=== PATIENT | female | born 1955 | race Caucasian/White ===

== ENCOUNTER → 2017-07-19 | Outpatient (REF) ==
[2015-05-22 10:55] VITALS: BMI 36.2
[~2017-07-19] MED LIST: ALB18R INH; AUG500 PO; FLUT1DIS28 IH; FLUT1DIS29 IH; HYDR25CA13 PO; IBUP-56 PO; LEVO750T27 PO; LISI-362 PO; LOR5 PO; LORA-629 PO; NAPR500T31 PO; NO; OMEP-137 PO; PRED-1 PO; SUMA100T32 PO
--- NOTE | 2017-07-19 14:48 | RADIOLOGY IMAGING REPORT ---
FACILITY: [facility] PATIENT NAME: Naila Jacobsen : 1955 MR: [id number] V: [id number] EXAM DATE: ORDERING PHYSICIAN: RANJIT JAVIER TECHNOLOGIST: Location: [facility] Patient: Naila Jacobsen : 1955 Visit/Account:[id number] Date of Sevice: 07/19/2017 EXAMINATION: Ultrasound soft tissue HISTORY: Popliteal swelling right knee. COMPARISON: None. FINDINGS: There is no focal abnormality in the right popliteal area at the site indicated by the pat ient. Popliteal vein and artery are patent on color Doppler ultrasound and the vein is normally comp ressible. No focal soft tissue mass. IMPRESSION: No sonographic abnormality in the right popliteal area at the site indicated by the patient. Report Dictated By: Claribel Whiteside MD at 07/19/2017 2:30 PM Report E-Signed By: Claribel Whiteside MD at 07/19/2017 2:45 PM WSN:[email or web address]
== END ==
LOC: US 06:52
PROVIDERS: ATTEND Nurse Practitioner
DX: M25.461 Effusion, right knee (principal)
CPT/HCPCS: 76999

== ENCOUNTER → 2017-08-02 | Outpatient (REF) ==
[2015-05-22 10:55] VITALS: BMI 36.2
--- NOTE | 2017-08-02 15:32 | RADIOLOGY IMAGING REPORT ---
FACILITY: [facility] PATIENT NAME: Naila Jacobsen : 1955 MR: [id number] V: [id number] EXAM DATE: ORDERING PHYSICIAN: RANJIT JAVIER TECHNOLOGIST: Location: [facility] Patient: Naila Jacobsen : 1955 Visit/Account:[id number] Date of Sevice: 08/02/2017 EXAMINATION: Chest radiographs 2 views HISTORY: Spirometry shows restriction, COPD. COMPARISON: 05/22/2015. FINDINGS: PA and lateral views of the chest are submitted. Lines/tubes: None. Lungs/pleura: No focal consolidation or pleural effusion. Lung volumes appear normal. Heart: Negative. Mediastinum: Negative. Bony structures/body wall: Negative. IMPRESSION: No radiographic evidence of acute cardiopulmonary disease. Report Dictated By: Claribel Whiteside MD at 08/02/2017 3:27 PM Report E-Signed By: Claribel Whiteside MD at 08/02/2017 3:29 PM WSN:[email or web address]
== END ==
LOC: RAD 14:50
PROVIDERS: ATTEND Nurse Practitioner
DX: J44.9 Chronic obstructive pulmonary disease, unspecified (principal)
CPT/HCPCS: 71046

== ENCOUNTER → 2017-08-09 | Outpatient (REF) ==
[2015-05-22 10:55] VITALS: BMI 36.2
== END ==
LOC: US 00:55
PROVIDERS: ATTEND Nurse Practitioner
DX: I51.7 Cardiomegaly (principal); I34.0 Nonrheumatic mitral (valve) insufficiency; I07.1 Rheumatic tricuspid insufficiency
CPT/HCPCS: 93306

== ENCOUNTER → 2017-09-09 | Outpatient (REF) ==
[2015-05-22 10:55] VITALS: BMI 36.2
--- NOTE | 2017-09-09 15:13 | RADIOLOGY IMAGING REPORT ---
FAC[place] [facility] [place]IENT NAME: Naila Jacobsen : 1955 MR: [id number] V: [id number] EXAM DATE: ORDERING PHYSICIAN: ABRAN JURADO TECHNOLOGIST: Location: [facility] Patient: Naila Jacobsen : 1955 Visit/Account:[id number] Date of Sevice: 09/09/2017 SHOULDER MIN 2 VIEWS RIGHT Indication: Right shoulder pain Comparison: None Findings: The right clavicle, scapula, and proximal humerus are intact and demonstrate normal alignme nt. Visualized right ribs are normal. IMPRESSION: Normal right shoulder radiograph. Report Dictated By: Brian Gordillo at 09/09/2017 3:08 PM Report E-Signed By: Brian Gordillo at 09/09/2017 3:08 PM WSN:[email or web address]
== END ==
LOC: RAD 13:24
PROVIDERS: ATTEND Orthopaedic Surgery Orthopaedic Surgery of the Spine
DX: M25.511 Pain in right shoulder (principal)

== ENCOUNTER → 2017-10-04 | Outpatient (REF) ==
[2015-05-22 10:55] VITALS: BMI 36.2
--- NOTE | 2017-10-04 16:24 | RADIOLOGY IMAGING REPORT ---
FACILITY: [facility] [place] PATIENT NAME: Naila Jacobsen : 1955 MR: [id number] V: [id number] EXAM DATE: ORDERING PHYSICIAN: RANJIT JAVIER TECHNOLOGIST: Location: [facility] [place] Patient: Naila Jacobsen : 1955 Visit/Account:[id number] Date of Sevice: 10/04/2017 CHEST W/O CONTRAST History: Restrictive pattern on spirometry, COPD TECHNIQUE: Contiguous axial images were performed through the chest to the level of the adrenal gla nds. No IV contrast was administered. Coronal and sagittal reformatting was also performed. Dose Lowe ring Technique One of the following dose optimization techniques was utilized in the performance of this exam: Autom ated exposure control; adjustment of the mA and/or kV according to the patient's size; or use of an i terative reconstruction technique. Specific details can be referenced in the facility's radiology C T exam operational policy. COMPARISON STUDIES: Two-view chest August 02, 2017. Lungs / Pleura: There is a 4 mm calcified nodule medial left upper lobe best seen on image 79 of se leonora 4. there is a small amount of linear scarring versus atelectasis in the inferior right middle lobe and lingula. There is a subtle groundglass opacity in the posterior sulcus of the right lower lobe. The re is no evidence of emphysema, bronchiectasis, or pleural effusions. Mediastinum/nodes: Small calcified left hilar lymph nodes. No pathologically enlarged hilar mediast inal lymph nodes are present Heart and vessels: There are moderate coronary artery calcifications Musculoskeletal / Body wall: Moderate spondylotic changes in the thoracic spine Upper abdomen: Visualized abdominal viscera negative. IMPRESSION: Evidence of a prior granulomatous process Small amount linear scarring versus atelectasis in the inferior right middle lobe and lingula. There are subtle groundglass opacity in the posterior sulcus the right lower lobe which may represent a small area of atelectasis or scarring Report Dictated By: Alexia Elliott MD at 10/04/2017 4:14 PM Report E-Signed By: Alexia Elliott MD at 10/04/2017 4:20 PM WSN:[email or web address]
== END ==
LOC: CT 02:04
PROVIDERS: ATTEND Nurse Practitioner
DX: J44.9 Chronic obstructive pulmonary disease, unspecified (principal)
CPT/HCPCS: 71250

== ENCOUNTER → 2017-12-22 | Outpatient (REF) ==
[2015-05-22 10:55] VITALS: BMI 36.2
--- NOTE | 2017-12-22 14:21 | RADIOLOGY IMAGING REPORT ---
FACILITY: [facility] PATIENT NAME: Naila Jacobsen : 1955 MR: [id number] V: [id number] EXAM DATE: [id number] ORDERING PHYSICIAN: RANJIT JAVIER TECHNOLOGIST: Location: [facility] [place] Patient: Naila Jacobsen : 1955 Visit/Account:[id number] Date of Sevice: 12/22/2017 Exam type: CHEST PA AND LAT History: COPD, asthma, abdomen distention Comparison: August 02, 2017. Findings: The lungs are free of acute effusions infiltrates or edema. There is no evidence of a pneumothorax o r pneumomediastinum. The cardiac silhouette is normal in size. Trachea is in midline. There are sp ondylotic changes of the thoracic spine IMPRESSION: 1. No acute cardiopulmonary process is seen Report Dictated By: Alexia Elliott MD at 12/22/2017 2:18 PM Report E-Signed By: Alexia Elliott MD at 12/22/2017 2:19 PM WSN:[email or web address]
== END ==
LOC: RAD 13:37
PROVIDERS: ATTEND Nurse Practitioner
DX: R14.0 Abdominal distension (gaseous) (principal)
CPT/HCPCS: 71046

== ENCOUNTER → 2018-02-15 | Outpatient (REF) ==
[2015-05-22 10:55] VITALS: BMI 36.2
--- NOTE | 2018-02-15 16:51 | RADIOLOGY IMAGING REPORT ---
FACILITY: [facility] PATIENT NAME: Naila Jacobsen : 1955 MR: [id number] V: [id number] EXAM DATE: ORDERING PHYSICIAN: RANJIT JAVIER TECHNOLOGIST: Location: [facility] [place] Patient: Naila Jacobsen : 1955 Visit/Account:[id number] Date of Sevice: 02/15/2018 Left lower extremity venous Doppler duplex ultrasound scan. HISTORY: Left lower extremity edema. COMPARISON: None. A color flow Doppler duplex ultrasound examination with spectral analysis was performed on the lower extremity. The common femoral vein, superficial femoral vein, and popliteal vein are normal. These ve ssels compress and augment normally. The upper portions of the trifurcation veins are unremarkable. P ortions of the deep veins of the calf are obscured. No intraluminal filling defects are identified to suggest acute thrombus in the deep venous system. No abnormal fluid collections. A venous reflux study was not performed at this time. Note that Doppler ultrasound is somewhat insensitive below the knee. IMPRESSION: Negative for acute deep vein thrombosis. Report Dictated By: Rah Lopez MD at 02/15/2018 4:45 PM Report E-Signed By: Rah Lopez MD at 02/15/2018 4:46 PM WSN:[id number]
== END ==
LOC: US 16:01
PROVIDERS: ATTEND Nurse Practitioner
DX: R60.0 Localized edema (principal)

== ENCOUNTER → 2018-02-25 | Outpatient (REF) | payer OTHER ==
[2015-05-22 10:55] VITALS: BMI 36.2
== END ==
LOC: RESP 04:37 → EDSTATUS 13:00
PROVIDERS: ATTEND Nurse Practitioner
DX: J44.9 Chronic obstructive pulmonary disease, unspecified (principal)
CPT/HCPCS: 94060; 94726; 94729

== ENCOUNTER → 2018-04-16 | Outpatient (REF) ==
[2015-05-22 10:55] VITALS: BMI 36.2
== END ==
LOC: RESP 20:27 → EDSTATUS 21:00
PROVIDERS: ATTEND Nurse Practitioner
DX: G47.30 Sleep apnea, unspecified (principal); G47.36 Sleep related hypoventilation in conditions classified elsewhere; G47.61 Periodic limb movement disorder

== ENCOUNTER 2018-06-20 17:06 | Emergency (ER) | payer SELFPAY ==
[2015-05-22 10:55] VITALS: Wt 90.7 kg
--- NOTE | 2018-06-20 17:17 | ER Report ---
History and Physical Time Seen By MD: 17:17 HPI/ROS CHIEF COMPLAINT: Elevated d-dimer HISTORY OF PRESENT ILLNESS: 62-year-old female patient presents to emergency room with complaint of having an elevated d-dimer. Patient [facility], they ordered lab work on Wednesday. They received the results this afternoon approximate 5:00. They informed her that she had an elevated d-dimer and felt that she should come to the emergency room for further evaluation. Patient has a history of shortness of breath. She is currently on to have liters of oxygen all the time. She states that she's noticed increasing shortness of breath with activity. She denies any fevers, chills, nausea, vomiting or diarrhea. Patient states she is not had any changes in her medications. She states that she has been taking a diuretic which has helped with her swelling. Patient denies having any cough. REVIEW OF SYSTEMS: Respiratory: As noted above Cardiovascular: No chest pain, no palpitations. Gastrointestinal: No vomiting, no abdominal pain. Musculoskeletal: No back pain. Allergies: Coded Allergies: Penicillins (Verified Allergy, Mild, 01/12/07) aspirin (Verified Allergy, Mild, 01/12/07) codeine (Verified Allergy, Mild, 01/12/07) latex (Verified Allergy, Mild, 01/12/07) Home Meds Reported Medications Montelukast Sodium (MONTELUKAST SODIUM) 10 Mg Tablet, 1 TAB PO QDAY, TAB 06/20/18 Furosemide (FUROSEMIDE) 20 Mg Tablet, 1 TAB PO DAILY, TAB 06/20/18 Docusate Sodium (COLACE) 100 Mg Capsule, 100 MG PO DAILY, CAPSULE 06/20/18 Atorvastatin Calcium (LIPITOR) 10 Mg Tablet, 1 TAB PO QDAY, TAB 06/20/18 Albuterol Sulfate (VENTOLIN HFA) 18 Gm Inh, 4 PUFF INH Q4-6H for Asthma, INH 11/27/15 Fluticasone/Salmeterol (ADVAIR 500-50 DISKUS) 1 Each Disk.w.dev, 1 EACH IH BID for Asthma 11/27/15 Omeprazole (OMEPRAZOLE) 20 Mg Tablet.dr, 20 MG PO QDAY for GERD, TAB 11/27/15 Loratadine (LORATADINE) 10 Mg Tablet, 10 MG PO DAILY PRN for ALLERGY SYMPTOMS 11/27/15 Naproxen (NAPROXEN) 500 Mg Tablet, 500 MG PO BID for PAIN, TAB 11/27/15 Hydroxyzine Pamoate (HYDROXYZINE PAMOATE) 25 Mg Capsule, 25 MG PO 1-2XD for Sleep, CAPSULE 11/27/15 Ibuprofen (IBUPROFEN) 200 Mg Tablet, 3 TAB PO Q6H PRN for PAIN, TAB 05/21/15 Discontinued Reported Medications Lisinopril (LISINOPRIL) 10 Mg Tablet, 10 MG PO QDAY PRN for HYPERTENSION, TAB 11/27/15 Sumatriptan Succinate (IMITREX) 100 Mg Tablet, 100 MG PO ONCE PRN for HEADACHE 11/27/15 Past Medical/Surgical History Patient has a past medical history of migraines, asthma, pneumonia, arthritis. Patient has a surgical history of hysterectomy, right shoulder surgery, right knee surgery, right ankle surgery, tonsillectomy. Reviewed Nurses Notes: Yes Hx Smoking: Yes Smoking Status: Never Smoker, Former Smoker Hx Substance Use Disorder: No Hx Alcohol Use: No Constitutional Vital Sign - Last 24 Hours 06/20/18 06/20/18 06/20/18 06/20/18 17:14 17:16 17:21 17:26 Temp 98.2 Pulse 72 73 Resp 20 B/P (MAP) 119/99 (106) 119/99 Pulse Ox 99 98 O2 Delivery Nasal Cannula O2 Flow Rate 2.0 06/20/18 06/20/18 06/20/18 06/20/18 17:30 17:36 17:51 18:00 Pulse 70 64 B/P (MAP) 120/76 (91) 112/72 (85) Pulse Ox 97 98 06/20/18 06/20/18 06/20/18 06/20/18 18:06 18:21 18:36 19:00 Pulse 64 61 64 B/P (MAP) 137/75 (95) Pulse Ox 87 95 06/20/18 06/20/18 06/20/18 06/20/18 19:01 19:05 19:20 19:30 Pulse 65 65 68 Resp 28 13 B/P (MAP) ???/??? (1665) Pulse Ox 97 97 97 06/20/18 19:35 Pulse ??? Physical Exam General Appearance: The patient is alert, has no immediate need for airway protection and no current signs of toxicity. Respiratory: Chest is non tender, lungs are clear to auscultation. Cardiac: regular rate and rhythm Gastrointestinal: Abdomen is soft and non tender, no masses, bowel sounds normal. Musculoskeletal: Neck: Neck is supple and non tender. Extremities have full range of motion and are non tender. Skin: No rashes or lesions. DIFFERENTIAL DIAGNOSIS: After history and physical exam differential diagnosis w as considered for DVT, PE, shortness of breath. Medical Decision Making Data Points Result Diagram: 06/20/18 1719 06/20/18 1719 Laboratory Hematology Test 06/20/18 17:19 Red Blood Count 3.88 M/uL (4.17-5.56) Mean Corpuscular Volume 89.3 fL (80.0-96.0) Mean Corpuscular Hemoglobin 29.2 pg (26.0-33.0) Mean Corpuscular Hemoglobin Concent 32.7 g/dL (32.0-36.0) Red Cell Distribution Width 12.4 % (11.5-14.5) Mean Platelet Volume 8.6 fL (7.2-11.1) Neutrophils (%) (Auto) 62.7 % (39.4-72.5) Lymphocytes (%) (Auto) 29.0 % (17.6-49.6) Monocytes (%) (Auto) 6.6 % (4.1-12.4) Eosinophils (%) (Auto) 0.9 % (0.4-6.7) Basophils (%) (Auto) 0.8 % (0.3-1.4) Nucleated RBC Relative Count (auto) 0.0 /100WBC Neutrophils # (Auto) 3.8 K/uL (2.0-7.4) Lymphocytes # (Auto) 1.8 K/uL (1.3-3.6) Monocytes # (Auto) 0.4 K/uL (0.3-1.0) Eosinophils # (Auto) 0.1 K/uL (0.0-0.5) Basophils # (Auto) 0.1 K/uL (0.0-0.1) Nucleated RBC Absolute Count (auto) 0.00 K/uL D-Dimer Quantitative (PE/DVT) 1.15 ug/ml (0-0.50) Sodium Level 138 mmol/L (137-145) Potassium Level 4.6 mmol/L (3.5-5.0) Chloride Level 102 mmol/L (98-107) Carbon Dioxide Level 30 mmol/L (22-31) Blood Urea Nitrogen 25 mg/dl (7-18) Creatinine 1.00 mg/dl (0.52-1.04) Glomerular Filtration Rate Calc 56.6 Random Glucose 92 mg/dl (75-110) Calcium Level 9.8 mg/dl (8.4-10.2) Total Bilirubin 0.4 mg/dl (0.2-1.3) Aspartate Amino Transf (AST/SGOT) 19 U/L (0-35) Alanine Aminotransferase (ALT/SGPT) 24 U/L (0-56) Alkaline Phosphatase 70 U/L (0-126) Troponin I < 0.012 ng/ml B-Type Natriuretic Peptide 121 pg/ml (0-100) Total Protein 6.9 g/dl (6.3-8.2) Albumin 4.0 g/dl (3.5-5.0) Chemistry Test 06/20/18 17:19 White Blood Count 6.1 k/uL (4.5-11.0) Red Blood Count 3.88 M/uL (4.17-5.56) Hemoglobin 11.3 g/dL (12.0-16.0) Hematocrit 34.7 % (34.0-47.0) Mean Corpuscular Volume 89.3 fL (80.0-96.0) Mean Corpuscular Hemoglobin 29.2 pg (26.0-33.0) Mean Corpuscular Hemoglobin Concent 32.7 g/dL (32.0-36.0) Red Cell Distribution Width 12.4 % (11.5-14.5) Platelet Count 187 K/uL (150-450) Mean Platelet Volume 8.6 fL (7.2-11.1) Neutrophils (%) (Auto) 62.7 % (39.4-72.5) Lymphocytes (%) (Auto) 29.0 % (17.6-49.6) Monocytes (%) (Auto) 6.6 % (4.1-12.4) Eosinophils (%) (Auto) 0.9 % (0.4-6.7) Basophils (%) (Auto) 0.8 % (0.3-1.4) Nucleated RBC Relative Count (auto) 0.0 /100WBC Neutrophils # (Auto) 3.8 K/uL (2.0-7.4) Lymphocytes # (Auto) 1.8 K/uL (1.3-3.6) Monocytes # (Auto) 0.4 K/uL (0.3-1.0) Eosinophils # (Auto) 0.1 K/uL (0.0-0.5) Basophils # (Auto) 0.1 K/uL (0.0-0.1) Nucleated RBC Absolute Count (auto) 0.00 K/uL D-Dimer Quantitative (PE/DVT) 1.15 ug/ml (0-0.50) Glomerular Filtration Rate Calc 56.6 Calcium Level 9.8 mg/dl (8.4-10.2) Total Bilirubin 0.4 mg/dl (0.2-1.3) Aspartate Amino Transf (AST/SGOT) 19 U/L (0-35) Alanine Aminotransferase (ALT/SGPT) 24 U/L (0-56) Alkaline Phosphatase 70 U/L (0-126) Troponin I < 0.012 ng/ml B-Type Natriuretic Peptide 121 pg/ml (0-100) Total Protein 6.9 g/dl (6.3-8.2) Albumin 4.0 g/dl (3.5-5.0) Coagulation Test 06/20/18 17:19 D-Dimer Quantitative (PE/DVT) 1.15 ug/ml EKG/Imaging EKG Interpretation 12 lead EKG: Rhythm: normal sinus rhythm [place]: Left axis deviation QRS: Low voltage QRS ST segments: normal Imaging EXAMINATION: CTA of the chest with IV contrast HISTORY: Elevated d-dimer. TECHNIQUE: Pulmonary embolus protocol - Thin axial CT images of the chest were obtained with IV contrast during maximal pulmonary arterial opacification. Reconstruction of the source data includes multiplanar 2D coronal and sagittal reconstructed images, and 3D coronal and sagittal MIP images. Drawing Kiln Operator images have been stored on PACS. One of the following dose optimization techniques was utilized in the performance of this exam: Automated exposure control; adjustment of the mA and/or kV according to the patient's size; or use of an iterative reconstruction technique. Specific details can be referenced in the facility's radiology CT exam operational policy. Contrast: 75 mL of IV Isovue-370. COMPARISON: CT chest without contrast 10/04/2017. FINDINGS: Pulmonary arteries: The pulmonary arteries are moderately well opacified, without suspicious filling defect. Heart, aorta, and great vessels: Normal caliber thoracic aorta, without aneurysm or dissection. Vascular calcifications including coronary artery calcifications. Normal heart size. No pericardial effusion. Lungs and pleura: Calcified granuloma in the left upper lobe. There is slight scarring or atelectasis in the right middle lobe and lingula. No suspicious focal consolidation. No pleural effusion or pneumothorax. Mediastinum and alfredito: Negative. Visualized upper abdomen: Unremarkable. Chest wall: Negative. Bones: No acute osseous findings in the chest. Scattered degenerative changes along the spine. IMPRESSION: 1. No evidence of pulmonary embolism. 2. No other acute findings in the chest. Report Dictated By: Koby Art MD at 06/20/2018 7:12 PM Report E-Signed By: Koby Art MD at 06/20/2018 7:17 PM EXAMINATION: Bilateral lower extremity duplex venous ultrasound COMPARISON: 02/15/2018. HISTORY: swelling of the left leg FINDINGS: Standard bilateral lower extremity Doppler ultrasound with color flow and spectral analysis is performed. The bilateral common femoral, femoral, and popliteal veins are widely patent and compress appropriately. The visualized calf veins and the proximal greater s aphenous vein are patent. No popliteal fluid collection. IMPRESSION: No evidence of deep venous thrombosis within either lower extremity. Report Dictated By: Anton Stevenson MD at 06/20/2018 6:45 PM Report E-Signed By: Anton Stevenson MD at 06/20/2018 6:46 PM ED Course/Re-evaluation ED Course Patient was admitted to exam room, history and physical were obtained. Differential diagnoses were considered. On examination lungs are clear, heart is regular, abdomen soft nontender. Patient had an ultrasound of bilateral lower extremities due to the concern of possible blood clot. A CBC, CMP, d-dimer, troponin, EKG were done. EKG was unremarkable. Troponin was negative, labs were unremarkable except for d-dimer which was elevated at 1.15. A CT pulmonary angio gram was done which was negative. I discussed the findings with the patient. I did inform her that d-dimer is are great test when they're negative. The concern is that when they're positive for lots of underlying causes of a positive d- dimer. Patient does feel significantly improved knowing that she's not having a blood clot in his regimen discharged home. We'll have [facility] [place] as [place] schedule. Patient verbalized understanding and agreement with plan. Decision to Disposition Date: Jun 20, 2018 Decision to Disposition Time: 19:28 Depart Departure Latest Vital Signs Vital Signs Date Time Temp Pulse Resp B/P (MAP) Pulse Ox O2 Delivery O2 Flow Rate FiO2 06/20/18 19:35 ??? 06/20/18 19:30 ???/??? (1665) 06/20/18 19:20 13 97 06/20/18 17:26 2.0 06/20/18 17:16 98.2 Nasal Cannula Impression: Primary Impression: Shortness of breath Condition: Improved Disposition: HOME OR SELF-CARE Referrals: RANJIT JAVIER (PCP) Patient Instructions: Dyspnea (ED) Additional Instructions: Continue with current medications. [facility] 1 [facility]. Return to the ER if condition worsens. Consider turing oxygen up to 3LPM when you are up walking. Continue on 2.5LPM when you are resting. AARTI COOLEY Jun 20, 2018 17:17
[2018-06-20 17:28] LABS: PLATELET COUNT, AUTOMATED 187 K/uL (150-450)
--- NOTE | 2018-06-20 17:28 | EKG ---
[place] [facility] [place] SUKHJINDER BRUNO : [id number] MR: [id number] V: [id number] EXAM DATE: ORDERING PHYSICIAN: AARTI COOLEY TECHNOLOGIST: ALISA Test Reason : SOB Blood Pressure : / mmHG Vent. Rate : 069 BPM Atrial Rate : 069 BPM P-R Int : 178 ms QRS Dur : 078 ms QT Int : 380 ms P-R-T Axes : 057 -40 021 degrees QTc Int : 407 ms Normal sinus rhythm Left axis deviation Low voltage QRS Abnormal ECG When compared with ECG of 21-MAY-2015 10:49, No significant change was found Confirmed by Blayne Vides ([id number]) on 06/20/2018 7:01:18 PM Referred By: RHYS Confirmed By:Blayne German
[2018-06-20] MEDS ORDERED: DOCU-416 PO (17:33)
[2018-06-20] MEDS ORDERED: ATOR10TA24 PO (17:33)
[2018-06-20] MEDS ORDERED: MONT10TA4 PO (17:33)
[2018-06-20] MEDS ORDERED: FURO-45 PO (17:33)
[2018-06-20] MEDS ORDERED: NS(*) 0.9% 50 ML BAG 50 ML ONE (18:03)
[2018-06-20] MEDS ORDERED: IOPAMIDOL 76% 150 ML INFUS BTL 150 ML ONE (18:03)
--- NOTE | 2018-06-20 18:49 | RADIOLOGY IMAGING REPORT ---
FACILITY: [facility] [place] PATIENT NAME: Naila Jacobsen : 1955 MR: [id number] V: [id number] EXAM DATE: ORDERING PHYSICIAN: AARTI COOLEY TECHNOLOGIST: [place] [facility] [place] Patient: Naila Jacobsen : 1955 Visit/Account:[id number] Date of Sevice: 06/20/2018 EXAMINATION: Bilateral lower extremity duplex venous ultrasound COMPARISON: 02/15/2018. HISTORY: swelling of the left leg FINDINGS: Standard bilateral lower extremity Doppler ultrasound with color flow and spectral analysis is performed. The bilateral common femoral, femoral, and popliteal veins are widely patent and compress appropriate ly. The visualized calf veins and the proximal greater saphenous vein are patent. No popliteal fluid collection. IMPRESSION: No evidence of deep venous thrombosis within either lower extremity. Report Dictated By: Anton Stevenson MD at 06/20/2018 6:45 PM Report E-Signed By: Anton Stevenson MD at 06/20/2018 6:46 PM WSN:[id number]
--- NOTE | 2018-06-20 19:21 | RADIOLOGY IMAGING REPORT ---
FACILITY: [facility] PATIENT NAME: Naila Jacobsen : 1955 MR: [id number] V: [id number] EXAM DATE: ORDERING PHYSICIAN: AARTI COOLEY TECHNOLOGIST: Location: [facility] [place] Patient: Naila Jacobsen : 1955 Visit/Account:[id number] Date of Sevice: 06/20/2018 EXAMINATION: CTA of the chest with IV contrast HISTORY: Elevated d-dimer. TECHNIQUE: Pulmonary embolus protocol - Thin axial CT images of the chest were obtained with IV con trast during maximal pulmonary arterial opacification. Reconstruction of the source data includes mul tiplanar 2D coronal and sagittal reconstructed images, and 3D coronal and sagittal MIP images. Repres entative images have been stored on PACS. One of the following dose optimization techniques was utilized in the performance of this exam: Autom ated exposure control; adjustment of the mA and/or kV according to the patient's size; or use of an i terative reconstruction technique. Specific details can be referenced in the facility's radiology C T exam operational policy. Contrast: 75 mL of IV Isovue-370. COMPARISON: CT chest without contrast 10/04/2017. FINDINGS: Pulmonary arteries: The pulmonary arteries are moderately well opacified, without suspicious filling defect. Heart, aorta, and great vessels: Normal caliber thoracic aorta, without aneurysm or dissection. Vasc ular calcifications including coronary artery calcifications. Normal heart size. No pericardial effus ion. Lungs and pleura: Calcified granuloma in the left upper lobe. There is slight scarring or atelectasi s in the right middle lobe and lingula. No suspicious focal consolidation. No pleural effusion or pne umothorax. Mediastinum and alfredito: Negative. Visualized upper abdomen: Unremarkable. Chest wall: Negative. Bones: No acute osseous findings in the chest. Scattered degenerative changes along the spine. IMPRESSION: 1. No evidence of pulmonary embolism. 2. No other acute findings in the chest. Report Dictated By: Koby Art MD at 06/20/2018 7:12 PM Report E-Signed By: Koby Art MD at 06/20/2018 7:17 PM WSN:[id number]
== END 2018-06-20 19:37 | disposition home or self-care (01) ==
LOC: ER 17:09
DX: R06.02 Shortness of breath (principal)
CPT/HCPCS: 71275; 83880; 84484; 85025; 85379; 93005; 93970; 99284; J7050; Q9967; 82040; 82247; 82310; 82374; 82435; 82565; 82947; 84075; 84132; 84155; 84295; 84450; 84460; 84520

== ENCOUNTER 2018-07-11 14:54 | Emergency (ER) | payer SELFPAY ==
[2015-05-22 10:55] VITALS: Wt 88.9 kg
[~2018-07-11 14:54] MED LIST changes: +ATOR10TA24 PO; +DOCU-416 PO; +FURO-45 PO; +MONT10TA4 PO
--- NOTE | 2018-07-11 15:10 | ER Report ---
History and Physical Time Seen By MD: 15:10 HPI/ROS CHIEF COMPLAINT: Elevated creatinine HISTORY OF PRESENT ILLNESS: 62-year-old female patient presents to the emergency room with complaint of elevated creatinine. Patient states that she has had of a creatinine for the last couple of weeks. She states that she had it rechecked on Wednesday. She was called today by her primary care provider and directed to the emergency room as the creatinine level was extremely elevated. Patient states she feels fine other than just fatigue. Patient states that she's not had any nausea, vomiting or diarrhea. Patient states she has been taking her medications as directed. She had been on lisinopril for short. Time, however she has stopped that. REVIEW OF SYSTEMS: Respiratory: No cough, no dyspnea. Cardiovascular: No chest pain, no palpitations. Gastrointestinal: No vomiting, no abdominal pain. Musculoskeletal: No back pain. Allergies: Coded Allergies: Penicillins (Verified Allergy, Mild, 07/11/18) aspirin (Verified Allergy, Mild, 07/11/18) codeine (Verified Allergy, Mild, 07/11/18) latex (Verified Allergy, Mild, 07/11/18) Home Meds Active Scripts Sucralfate (CARAFATE) 1 Gm Tablet, 1 GM PO QID, #60 TAB Take before meals and at bedtime. Crush the tablet and mix with water before taking. Prov:LENORAAARTI CIRCUIT COURT CLERK 07/11/18 Reported Medications Potassium Chloride (POTASSIUM CHLORIDE) 10 Meq Tablet.er, 10 MEQ PO QDAY 07/11/18 Lisinopril (LISINOPRIL) 10 Mg Tablet, 10 MG PO QDAY, TAB 07/11/18 [Mag 64] No Conflict Check, 1 TAB PO QNOON 07/11/18 Tiotropium [place] (SPIRIVA) 18 Mcg/Cap Inh, 18 MCG INH QAM, INH 07/11/18 [place]-3 Fatty Acids/Fish Oil (FISH OIL 1,000 MG CAPSULE) 1 Each Capsule, 1 EACH PO DAILY, CAPSULE 07/11/18 [Vitafusion Womans] No Conflict Check, 2 TAB PO DAILY 07/11/18 Flaxseed Oil (FLAXSEED OIL) 1,000 Mg Capsule, 1000 MG PO DAILY, CAPSULE 07/11/18 Clarithromycin (CLARITHROMYCIN) 500 Mg Tablet, 500 MG PO BID, #14 TAB 07/11/18 Paroxetine Hcl (PAXIL) 20 Mg Tablet, 20 MG PO QDAY, TAB 07/11/18 Pantoprazole Sodium (PANTOPRAZOLE SODIUM) 40 Mg Tablet.dr, 40 MG PO QDAY, TAB.SR 07/11/18 Montelukast Sodium (MONTELUKAST SODIUM) 10 Mg Tablet, 1 TAB PO QDAY, TAB 06/20/18 Furosemide (FUROSEMIDE) 20 Mg Tablet, 1 TAB PO DAILY, TAB 06/20/18 Docusate Sodium (COLACE) 100 Mg Capsule, 100 MG PO DAILY, CAPSULE 06/20/18 Atorvastatin Calcium (LIPITOR) 10 Mg Tablet, 1 TAB PO QDAY, TAB 06/20/18 Albuterol Sulfate (VENTOLIN HFA) 18 Gm Inh, 4 PUFF INH Q4-6H for Asthma, INH 11/27/15 Fluticasone/Salmeterol (ADVAIR 500-50 DISKUS) 1 Each Disk.w.dev, 1 EACH IH BID for Asthma 11/27/15 Loratadine (LORATADINE) 10 Mg Tablet, 10 MG PO DAILY 11/27/15 Naproxen (NAPROXEN) 500 Mg Tablet, 500 MG PO BID for PAIN, TAB 11/27/15 Hydroxyzine Pamoate (HYDROXYZINE PAMOATE) 25 Mg Capsule, 25 MG PO QHS for Sleep, CAPSULE 11/27/15 Discontinued Reported Medications Omeprazole (OMEPRAZOLE) 20 Mg Tablet.dr, 20 MG PO QDAY for GERD, TAB 11/27/15 Ibuprofen (IBUPROFEN) 200 Mg Tablet, 3 TAB PO Q6H PRN for PAIN, TAB 05/21/15 Past Medical/Surgical History Patient has a past medical history of migraines, asthma, pneumonia, H. pylori, arthritis, depression. Patient has a surgical history of right shoulder surgery, right knee surgery, right ankle surgery, tonsillectomy, hysterectomy. Reviewed Nurses Notes: Yes Hx Smoking: Yes Smoking Status: Never Smoker, Former Smoker Hx Substance Use Disorder: No Hx Alcohol Use: No Constitutional Vital Sign - Last 24 Hours 07/11/18 07/11/18 07/11/18 07/11/18 15:04 15:06 16:00 16:30 Temp 98.7 Pulse 115 85 77 Resp 22 19 11 B/P (MAP) 147/113 147/113 (124) 102/64 (77) 113/65 (81) Pulse Ox 92 95 96 O2 Delivery Nasal Cannula 07/11/18 07/11/18 07/11/18 17:00 17:30 18:00 Pulse 77 69 68 Resp 25 25 17 B/P (MAP) 121/65 (83) 119/69 (86) Pulse Ox 99 99 99 Physical Exam General Appearance: The patient is alert, has no immediate need for airway protection and no current signs of toxicity. Respiratory: Chest is non tender, lungs are clear to auscultation. Cardiac: regular rate and rhythm Gastrointestinal: Abdomen is soft and non tender, no masses, bowel sounds normal. Musculoskeletal: Neck: Neck is supple and non tender. Extremities have full range of motion and are non tender. Skin: No rashes or lesions. DIFFERENTIAL DIAGNOSIS: After history and physical exam differential diagnosis was considered for acute kidney failure, dehydration, overuse of Lasix. Medical Decision Making Data Points Result Diagram: 07/11/18 1508 07/11/18 1508 Laboratory Hematology Test 07/11/18 15:00 07/11/18 15:08 Urine Color Straw Urine Clarity Clear Urine pH 5.0 pH (4.8-9.5) Urine Specific [place] 1.009 Urine Protein Negative mg/dL (NEGATIVE) Urine Glucose (UA) Negative mg/dL (NEGATIVE) Urine Ketones Negative mg/dL (NEGATIVE) Urine Blood Negative (NEGATIVE) Urine Nitrite Negative (NEGATIVE) Urine Bilirubin Negative (NEGATIVE) Urine Urobilinogen Negative mg/dL (0.2-1.9) Urine Leukocyte Esterase Negative (NEGATIVE) Urine RBC None /HPF (0-2/HPF) Urine WBC 1 /HPF (0-5/HPF) Urine Squamous Epithelial Cells Few /LPF (</=FEW) Urine Bacteria Negative /HPF (NONE-FEW) Urine Hyaline Casts Many /LPF (NONE-FEW) Urine Mucus None /HPF (NONE-FEW) Red Blood Count 4.44 M/uL (4.17-5.56) Mean Corpuscular Volume 87.1 fL (80.0-96.0) Mean Corpuscular Hemoglobin 28.7 pg (26.0-33.0) Mean Corpuscular Hemoglobin Concent 32.9 g/dL (32.0-36.0) Red Cell Distribution Width 12.6 % (11.5-14.5) Mean Platelet Volume 8.9 fL (7.2-11.1) Neutrophils (%) (Auto) 59.5 % (39.4-72.5) Lymphocytes (%) (Auto) 29.6 % (17.6-49.6) Monocytes (%) (Auto) 7.8 % (4.1-12.4) Eosinophils (%) (Auto) 2.3 % (0.4-6.7) Basophils (%) (Auto) 0.8 % (0.3-1.4) Nucleated RBC Relative Count (auto) 0.0 /100WBC Neutrophils # (Auto) 2.9 K/uL (2.0-7.4) Lymphocytes # (Auto) 1.4 K/uL (1.3-3.6) Monocytes # (Auto) 0.4 K/uL (0.3-1.0) Eosinophils # (Auto) 0.1 K/uL (0.0-0.5) Basophils # (Auto) 0.0 K/uL (0.0-0.1) Nucleated RBC Absolute Count (auto) 0.00 K/uL Sodium Level 138 mmol/L (137-145) Potassium Level 4.0 mmol/L (3.5-5.0) Chloride Level 104 mmol/L (98-107) Carbon Dioxide Level 26 mmol/L (22-31) Blood Urea Nitrogen 53 mg/dl (7-18) Creatinine 1.60 mg/dl (0.52-1.04) Glomerular Filtration Rate Calc 32.9 Random Glucose 99 mg/dl (75-110) Calcium Level 9.7 mg/dl (8.4-10.2) Total Bilirubin 0.5 mg/dl (0.2-1.3) Aspartate Amino Transf (AST/SGOT) 23 U/L (0-35) Alanine Aminotransferase (ALT/SGPT) 23 U/L (0-56) Alkaline Phosphatase 74 U/L (0-126) Total Protein 7.0 g/dl (6.3-8.2) Albumin 4.2 g/dl (3.5-5.0) Amylase Level 39 U/L (0-110) Lipase 83 U/L (23-300) Chemistry Test 07/11/18 15:00 07/11/18 15:08 Urine Color Straw Urine Clarity Clear Urine pH 5.0 pH (4.8-9.5) Urine Specific [place] 1.009 Urine Protein Negative mg/dL (NEGATIVE) Urine Glucose (UA) Negative mg/dL (NEGATIVE) Urine Ketones Negative mg/dL (NEGATIVE) Urine Blood Negative (NEGATIVE) Urine Nitrite Negative (NEGATIVE) Urine Bilirubin Negative (NEGATIVE) Urine Urobilinogen Negative mg/dL (0.2-1.9) Urine Leukocyte Esterase Negative (NEGATIVE) Urine RBC None /HPF (0-2/HPF) Urine WBC 1 /HPF (0-5/HPF) Urine Squamous Epithelial Cells Few /LPF (</=FEW) Urine Bacteria Negative /HPF (NONE-FEW) Urine Hyaline Casts Many /LPF (NONE-FEW) Urine Mucus None /HPF (NONE-FEW) White Blood Count 4.8 k/uL (4.5-11.0) Red Blood Count 4.44 M/uL (4.17-5.56) Hemoglobin 12.7 g/dL (12.0-16.0) Hematocrit 38.6 % (34.0-47.0) Mean Corpuscular Volume 87.1 fL (80.0-96.0) Mean Corpuscular Hemoglobin 28.7 pg (26.0-33.0) Mean Corpuscular Hemoglobin Concent 32.9 g/dL (32.0-36.0) Red Cell Distribution Width 12.6 % (11.5-14.5) Platelet Count 190 K/uL (150-450) Mean Platelet Volume 8.9 fL (7.2-11.1) Neutrophils (%) (Auto) 59.5 % (39.4-72.5) Lymphocytes (%) (Auto) 29.6 % (17.6-49.6) Monocytes (%) (Auto) 7.8 % (4.1-12.4) Eosinophils (%) (Auto) 2.3 % (0.4-6.7) Basophils (%) (Auto) 0.8 % (0.3-1.4) Nucleated RBC Relative Count (auto) 0.0 /100WBC Neutrophils # (Auto) 2.9 K/uL (2.0-7.4) Lymphocytes # (Auto) 1.4 K/uL (1.3-3.6) Monocytes # (Auto) 0.4 K/uL (0.3-1.0) Eosinophils # (Auto) 0.1 K/uL (0.0-0.5) Basophils # (Auto) 0.0 K/uL (0.0-0.1) Nucleated RBC Absolute Count (auto) 0.00 K/uL Glomerular Filtration Rate Calc 32.9 Calcium Level 9.7 mg/dl (8.4-10.2) Total Bilirubin 0.5 mg/dl (0.2-1.3) Aspartate Amino Transf (AST/SGOT) 23 U/L (0-35) Alanine Aminotransferase (ALT/SGPT) 23 U/L (0-56) Alkaline Phosphatase 74 U/L (0-126) Total Protein 7.0 g/dl (6.3-8.2) Albumin 4.2 g/dl (3.5-5.0) Amylase Level 39 U/L (0-110) Lipase 83 U/L (23-300) Urinalysis Test 07/11/18 15:00 Urine Color Straw Urine Clarity Clear Urine pH 5.0 pH (4.8-9.5) Urine Specific [place] 1.009 Urine Protein Negative mg/dL (NEGATIVE) Urine Glucose (UA) Negative mg/dL (NEGATIVE) Urine Ketones Negative mg/dL (NEGATIVE) Urine Blood Negative (NEGATIVE) Urine Nitrite Negative (NEGATIVE) Urine Bilirubin Negative (NEGATIVE) Urine Urobilinogen Negative mg/dL (0.2-1.9) Urine Leukocyte Esterase Negative (NEGATIVE) Urine RBC None /HPF (0-2/HPF) Urine WBC 1 /HPF (0-5/HPF) Urine Squamous Epithelial Cells Few /LPF (</=FEW) Urine Bacteria Negative /HPF (NONE-FEW) Urine Hyaline Casts Many /LPF (NONE-FEW) Urine Mucus None /HPF (NONE-FEW) EKG/Imaging Imaging CT ABDOMEN PELVIS W/O CON HISTORY: Abdominal pain TECHNIQUE: CT abdomen and pelvis without intravenous contrast. One of the following dose optimization techniques was utilized in the performance of this exam: Automated exposure control; adjustment of the mA and/or kV according to the patient's size; or use of an iterative reconstruction technique. Specific details can be referenced in the facility's radiology CT exam operational policy. CONTRAST: None. COMPARISON: June 20, 2018 FINDINGS: Visualized lung bases: Negative. Hepatobiliary: Unremarkable Spleen: Negative. Adrenals: Negative. Pancreas: Negative. Kidneys/: Negative. GI: Sigmoid colonic diverticulosis without diverticulitis. Vessels/spaces/nodes: Negative. Bones/soft tissues: Negative. IMPRESSION: No acute intra-abdominal process. Sigmoid colonic diverticulosis without diverticulitis. Report Dictated By: Aleksandr Weldon MD at 07/11/2018 4:10 PM Report E-Signed By: Aleksandr Weldon MD at 07/11/2018 4:15 PM ED Course/Re-evaluation ED Course Patient was admitted to examine, history and physical were obtained. Differential diagnoses were considered. On examination lungs are clear, heart is regular, abdomen is soft and tender in the epigastric region. A repeat CMP was done as well as a CBC. Patient did have elevated creatinine of 1.6, which is improved from the 2 that she had on Wednesday. It is my believe that was causing her elevated creatinine is likely overuse of her diuretic. Patient does have an elevated BUN. Patient was recently diagnosed with H. pylori and may very well be what is causing the elevated BUN as well. Patient was treated with 2 L of normal saline. She tolerated that well. We will go ahead and discharge patient home this time. She is to follow-up with her primary care provider on Wednesday. She is to stop taking her Lasix for the time being. I would like her to continue with her H. pylori medication. Patient was also started on Carafate to help with some GI upset. If she is unable to afford the medication I would like her to use the GI cocktail, 1 teaspoon every to 3 hours as needed for pain. Patient verbalized understanding and agreement with plan. Decision to Disposition Date: July 11, 2018 Decision to Disposition Time: 18:10 Depart Departure Latest Vital Signs Vital Signs Date Time Temp Pulse Resp B/P (MAP) Pulse Ox O2 Delivery O2 Flow Rate FiO2 07/11/18 18:00 68 17 119/69 (86) 99 07/11/18 15:04 98.7 Nasal Cannula Impression: Primary Impression: Dehydration Additional Impression: Ulcer Condition: Improved Disposition: HOME OR SELF-CARE Referrals: RANJIT JAVIER (PCP) New Scripts Sucralfate (CARAFATE) 1 Gm Tablet 1 GM PO QID, #60 TAB Take before meals and at bedtime. Crush the tablet and mix with water before taking. Prov: AARTI COOLEY 07/11/18 Patient Instructions: Dehydration (ED) Additional Instructions: Hold Lasix until you have seen Ranjit Javier. Continue with other medications. Take the Carafate 4 times a day as directed. Follow up with Ranjit Javier in 2 days. Return to the ER if condition worsens. I would recommend having a repeat CMP checked on Wednesday to recheck your creatinine. Problem Qualifiers AARTI COOLEY July 11, 2018 15:10
[2018-07-11] MEDS ORDERED: CLAR-1 PO (15:21)
[2018-07-11] MEDS ORDERED: FLAX100029 PO (15:21)
[2018-07-11] MEDS ORDERED: POTA-28 PO (15:21)
[2018-07-11] MEDS ORDERED: PARO-243 PO (15:21)
[2018-07-11] MEDS ORDERED: OMEG-11 PO (15:21)
[2018-07-11] MEDS ORDERED: [UNRECOGNIZED DRUG - OTHER] PO (15:21)
[2018-07-11] MEDS ORDERED: LISI-362 PO (15:21)
[2018-07-11] MEDS ORDERED: MAG 64 PO (15:21)
[2018-07-11] MEDS ORDERED: PANT40TA65 PO (15:21)
[2018-07-11] MEDS ORDERED: TIO18R INH (15:21)
[2018-07-11] MEDS ORDERED: NS(*) 0.9% 1000 ML BAG 1,000 ML IV ONE ×2 (15:30→16:30)
[2018-07-11 15:43] LABS: PLATELET COUNT, AUTOMATED 190 K/uL (150-450)
--- NOTE | 2018-07-11 16:19 | RADIOLOGY IMAGING REPORT ---
FAC[place] [facility] [place] NAME: Naila Jacobsen : 1955 MR: [id number] V: [id number] EXAM DATE: ORDERING PHYSICIAN: AARTI COOLEY TECHNOLOGIST: Location: [facility] Patient: Naila Jacobsen : 1955 Visit/Account:[id number] Date of Sevice: 07/11/2018 CT ABDOMEN PELVIS W/O CON HISTORY: Abdominal pain TECHNIQUE: CT abdomen and pelvis without intravenous contrast. One of the following dose optimization techniques was utilized in the performance of this exam: Autom ated exposure control; adjustment of the mA and/or kV according to the patient's size; or use of an i terative reconstruction technique. Specific details can be referenced in the facility's radiology C T exam operational policy. CONTRAST: None. COMPARISON: June 20, 2018 FINDINGS: Visualized lung bases: Negative. Hepatobiliary: Unremarkable Spleen: Negative. Adrenals: Negative. Pancreas: Negative. Kidneys/: Negative. GI: Sigmoid colonic diverticulosis without diverticulitis. Vessels/spaces/nodes: Negative. Bones/soft tissues: Negative. IMPRESSION: No acute intra-abdominal process. Sigmoid colonic diverticulosis without diverticulitis. Report Dictated By: Aleksandr Weldon MD at 07/11/2018 4:10 PM Report E-Signed By: Aleksandr Weldon MD at 07/11/2018 4:15 PM [id number]
[2018-07-11] MEDS ORDERED: LIDOCAINE 2% VISC SLN 15ML UDC PO ONE (16:30)
[2018-07-11] MEDS ORDERED: MAG HYD/AL HYD/SIMETH 30ML UDC PO ONE (16:30)
[2018-07-11 18:00] VITALS: BP 119/69
[2018-07-11] MEDS ORDERED: SUCR1TAB85 PO (18:07)
== END 2018-07-11 18:18 | disposition home or self-care (01) ==
LOC: ER 15:19
DX: E86.0 Dehydration (principal); K57.30 Diverticulosis of large intestine without perforation or abscess without bleeding
CPT/HCPCS: 74176; 81001; 82150; 83690; 85025; 96360; 96361; 99284; J7030; 82040; 82247; 82310; 82374; 82435; 82565; 82947; 84075; 84132; 84155; 84295; 84450; 84460; 84520

== ENCOUNTER 2018-09-23 00:51 | Day surgery (SDC) | payer MEDICARE, MEDICAID ==
[2015-05-22 10:55] VITALS: Ht 152.4 cm; Wt 85.3 kg
[2018-09-23] VITALS (9 sets, daily range): BP systolic 106–138; BP diastolic 65–85
[~2018-09-23] VITALS: Ht 152.4 cm; Wt 85.3 kg
[~2018-09-23 00:51] MED LIST changes: +CLAR-1 PO; +FLAX100029 PO; +MAG 64 PO; +OMEG-11 PO; +PANT40TA65 PO; +PARO-243 PO; +POTA-28 PO; +SUCR1TAB85 PO; +TIO18R INH; +[UNRECOGNIZED DRUG - OTHER] PO
[2018-09-23] MEDS ORDERED: NORMOSOL R SOLN(*) 1000 ML BAG 1,000 ML IV PRN (07:40)
[2018-09-23] MEDS ORDERED: LIDOCAINE/SOD BICARB 8.4% SYR ID ONE (07:40)
[2018-09-23] MEDS ORDERED: GLYCOPYRROLATE 0.2MG/ML 1 ML INJ IVP ONE (08:40)
[2018-09-23] MEDS ORDERED: KETAMINE HCL 500 MG/10 ML VIAL ONE (08:49)
[2018-09-23] MEDS ORDERED: MIDAZOLAM 2 MG/2 ML VIAL ONE ×3 (08:49→09:24)
--- NOTE | 2018-09-23 09:00 | NUR ---
PT. INTO STEPDOWN VIA BED. MOVING AROUND IN BED. SAFETY ENSURED. THREE RNs IN ROOM WITH DR. RICHARD.
--- NOTE | 2018-09-23 09:01 | NUR ---
PT. COMBATIVE. PULLING OFF EQUIPMENT. RNs ENSURED PT. SAFETY ATTEMPTING TO CRAWL OUT OF BED THRASHING AROUND. SEIZURE PADS PLACED ON BED. PT. NOT TOLERATING OXY MASK OR NC. REMOVED FROM PT. PT. PINK AND SPO2 WNL. MOVING AIR WELL.
--- NOTE | 2018-09-23 09:10 | NUR ---
PT. REMAINS COMBATIVE. STILL DISORIENTED. FIVE RNs AND DR. RICHARD AT BEDSIDE. SITUATION EXPLAINED TO AND QUESTIONS ADDRESS. EXPRESSING CONCERNS AT PT.'S OXYGENATION. INFORMED HIM THAT PT. IS NICE AND PINK AND SPO2 WNL.
--- NOTE | 2018-09-23 09:21 | Short(Outpt) Discharge Summary ---
Discharge Summary Reason for Hosp/Final Diag: (1) Dysphagia Hospital Course & Plan: pt presented for egd. she tolerated the procedure well. she will be discharged home when criteria met. Departure Discharge to: Home Discharge Instructions Home Meds Active Scripts Sucralfate (CARAFATE) 1 Gm Tablet, 1 GM PO QID, #60 TAB Take before meals and at bedtime. Crush the tablet and mix with water before taking. Prov:AARTI COOLEY ETL DEVELOPER 07/11/18 Reported Medications Potassium Chloride (POTASSIUM CHLORIDE) 10 Meq Tablet.er, 10 MEQ PO QDAY 07/11/18 Lisinopril (LISINOPRIL) 10 Mg Tablet, 10 MG PO QDAY, TAB 07/11/18 [Mag 64] No Conflict Check, 1 TAB PO QNOON 07/11/18 Tiotropium [place] (SPIRIVA) 18 Mcg/Cap Inh, 18 MCG INH QAM, INH 07/11/18 [place]-3 Fatty Acids/Fish Oil (FISH OIL 1,000 MG CAPSULE) 1 Each Capsule, 1 EACH PO DAILY, CAPSULE 07/11/18 [Vitafusion Womans] No Conflict Check, 2 TAB PO DAILY 07/11/18 Flaxseed Oil (FLAXSEED OIL) 1,000 Mg Capsule, 1000 MG PO DAILY, CAPSULE 07/11/18 Paroxetine Hcl (PAXIL) 20 Mg Tablet, 20 MG PO QDAY, TAB 07/11/18 Pantoprazole Sodium (PANTOPRAZOLE SODIUM) 40 Mg Tablet.dr, 40 MG PO QDAY, TAB.SR 07/11/18 Montelukast Sodium (MONTELUKAST SODIUM) 10 Mg Tablet, 1 TAB PO QDAY, TAB 06/20/18 Furosemide (FUROSEMIDE) 20 Mg Tablet, 1 TAB PO DAILY, TAB 06/20/18 Docusate Sodium (COLACE) 100 Mg Capsule, 100 MG PO DAILY, CAPSULE 06/20/18 Atorvastatin Calcium (LIPITOR) 10 Mg Tablet, 1 TAB PO QDAY, TAB 06/20/18 Albuterol Sulfate (VENTOLIN HFA) 18 Gm Inh, 4 PUFF INH Q4-6H for Asthma, INH 11/27/15 Fluticasone/Salmeterol (ADVAIR 500-50 DISKUS) 1 Each Disk.w.dev, 1 EACH IH BID for Asthma 11/27/15 Loratadine (LORATADINE) 10 Mg Tablet, 10 MG PO DAILY 11/27/15 Hydroxyzine Pamoate (HYDROXYZINE PAMOATE) 25 Mg Capsule, 25 MG PO QHS for Sleep, CAPSULE 11/27/15 Discontinued Reported Medications Clarithromycin (CLARITHROMYCIN) 500 Mg Tablet, 500 MG PO BID, #14 TAB 07/11/18 Naproxen (NAPROXEN) 500 Mg Tablet, 500 MG PO BID for PAIN, TAB 11/27/15 Discontinued Scripts Pantoprazole Sodium (PANTOPRAZOLE SODIUM) 40 Mg Tablet.dr, 40 MG PO QDAY, #30 TAB.SR 2 Refills Prov:JACE HARDING 09/14/18 Diet: Regular Activity: As Tolerated Special Instructions: we will call you with results in 10 days. JACE HARDING Sep 23, 2018 09:21
[2018-09-23] MEDS ORDERED: HALOPERIDOL LACT 5 MG/ML VIAL IM ONE (09:25)
--- NOTE | 2018-09-23 09:25 | NUR ---
PT. MEDICATED. REPOSITIONED IN BED TO SUPPORT OXYGENATION. OXYMASK PLACED ON PT.
--- NOTE | 2018-09-23 09:45 | NUR ---
PT. RESTING. OPENS EYES. CALM. REORIENTED AND ENCOURAGED TO REST. RN REMAINS AT BEDSIDE AND HAS NOT LEFT ROOM.
--- NOTE | 2018-09-23 10:20 | NUR ---
DR. HARDING INTO ROOM. DISCUSSING RESULTS OF PROCEDURE WITH SPOUSE.
--- NOTE | 2018-09-23 10:48 | NUR ---
ATTEMPTED ORTHOSTATICS. PT. UNSTEADY ON FEET. PLACED BACK IN BED. BP STABLE. WILL ALLOW PT. TO REST LONGER.
--- NOTE | 2018-09-23 11:10 | NUR ---
ORTHOSTATICS WNL. PT. STABLE ON FEET. DENIES DIZZINESS. WILL ALLOW PT. TO DRESS.
--- NOTE | 2018-09-23 11:15 | NUR ---
PT. ABLE TO DRESS WITHOUT ISSUES. EXPRESSED CONCERNS OF PT. BRUISING EASILY. EXPLAINED TO PT. THAT IF SHE BRUISES EASILY, MAY HAVE SOME BRUISING ON WRISTS AND ABOVE KNEES FROM RNs ENSURING PT. SAFETY. ADDITIONALLY, BRUISING NOTED AT MISSED IV SITES. ADVISED PT. WARM COMPRESS TO IV SITES. PT. STATED VERBAL UNDERSTANDING AND IS COMFORTABLE WITH PLAN.
== END 2018-09-23 11:25 | disposition home or self-care (01) ==
LOC: OR 00:51
PROVIDERS: ATTEND Surgery
DX: K29.70 Gastritis, unspecified, without bleeding (principal); K25.9 Gastric ulcer, unspecified as acute or chronic, without hemorrhage or perforation
CPT/HCPCS: 43239; 43249; 87077; 88305; 88313; 88342; C1726; J1630; J2250; J3490